=== PATIENT | female | born 1990 | race Caucasian/White ===

== ENCOUNTER → 2024-04-15 | Outpatient (CLI) | payer MEDICAID | LOC: RAD 09:42 | DX: M47.812 Spondylosis without myelopathy or radiculopathy, cervical region (principal) ==

== ENCOUNTER → 2024-04-18 | Outpatient (CLI) | payer MEDICAID ==
[2024-04-18 10:38] LABS: BASO # 0.01 K/mm3 (0.02-0.10); EOS # 0.04 K/mm3 (0.04-0.40); EOS % 0.4 % (1.0-5.0); HEMATOCRIT 40.8 % (37.0-47.0); HEMOGLOBIN 13.6 g/dL (12.5-16.0); LYMPH# 1.64 K/mm3 (1.50-4.00); MEAN CELL VOLUME 96 fl (78-100); MEAN CORPUSCULAR HEMOGLOBIN 32 pg (27-31); MEAN CORPUSCULAR HGB CONC 33 g/dL (33-37); MEAN PLATELET VOLUME 9.5 fl (7.4-10.4); MONO # 0.66 K/mm3 (0.20-0.80); NEU # 6.75 K/mm3 (1.40-6.50); PLATELET COUNT 249 K/mm3 (130-400); RED BLOOD COUNT 4.27 M/mm3 (4.10-5.30); RED CELL DISTRIBUTION WIDTH 12.1 % (11.5-14.5); WHITE BLOOD COUNT 9.1 K/mm3 (4.8-10.8)
[2024-04-18 10:41] LABS: ALBUMIN 4.1 g/dL (3.5-5.0)
[2024-04-18 10:43] LABS: CALCIUM 9.5 mg/dL (8.3-10.5)
[2024-04-18 10:44] LABS: TOTAL PROTEIN 6.9 g/dL (6.4-8.3)
[2024-04-18 10:46] LABS: TOTAL BILIRUBIN 0.5 mg/dL (0.2-1.2)
[2024-04-20 13:32] LABS: ANA SCREEN with REFLEX Negative (Negative)
== END ==
LOC: LAB 10:14
PROVIDERS: Nurse Practitioner
DX: M25.50 Pain in unspecified joint (principal)

== ENCOUNTER → 2024-05-03 | Outpatient (CLI) | payer MEDICAID ==
[2024-05-03 14:51] LABS: CLUE CELLS NOT OBSERVED (Not Observd)
== END ==
LOC: LAB 14:37
PROVIDERS: Physician Assistant
DX: Z72.51 High risk heterosexual behavior (principal)
CPT/HCPCS: Q0111

== ENCOUNTER → 2024-05-10 | Outpatient (CLI) | payer MEDICAID | LOC: RAD 08:30 | DX: M25.78 Osteophyte, vertebrae (principal) ==

== ENCOUNTER → 2024-08-03 | Outpatient (CLI) | payer MEDICAID | LOC: LAB 08:34 | DX: N39.0 Urinary tract infection, site not specified (principal) ==